=== PATIENT | male | born 1960 | race Native Hawaiian/Other Pacific Islander ===

== ENCOUNTER 2017-05-26 09:59 | Inpatient (IN) | payer BC, OTHER ==
[~2017-05-26] VITALS: Ht 167.6 cm; Wt 72.6 kg
--- NOTE | 2017-06-10 12:00 | NUR ---
pre-assessment:assessed pt in intake, pt at this time is in stable condition, and pt is able to give and sign consent. pt was able to verbalize any allergies and any medical history.
[2017-06-10] MEDS ORDERED: MIRALAX 17 GM POWD.PACK PO PRN (12:15)
[2017-06-10] MEDS ORDERED: LORAZEPAM 1 MG TABLET PO PRN (12:15)
[2017-06-10] MEDS ORDERED: LOPERAMIDE HCL 2 MG CAPSULE PO PRN ×2 (12:15)
[2017-06-10] MEDS ORDERED: LORAZEPAM 2 MG/1 ML VIAL IM PRN (12:15)
[2017-06-10] MEDS ORDERED: ONDANSETRON ODT 4 MG TAB.RAPDIS SL PRN (12:15)
[2017-06-10] MEDS ORDERED: ACETAMINOPHEN 325 MG TABLET PO PRN (12:15)
[2017-06-10] MEDS ORDERED: MAGNESIUM HYDROXIDE 30 ML LIQUID UDC PO PRN (12:15)
[2017-06-10] MEDS ORDERED: THIAMINE HCL 200 MG/2 ML VIAL IM ONE (12:15)
[2017-06-10] MEDS ORDERED: ONDANSETRON 4 MG/2 ML VIAL IM PRN (12:15)
[2017-06-10] MEDS ORDERED: CLONIDINE HCL 0.1 MG TABLET PO PRN (12:15)
[2017-06-10] MEDS ORDERED: IBUPROFEN 400 MG TABLET PO PRN (12:15)
[2017-06-10] MEDS ORDERED: DICYCLOMINE HCL 20 MG TABLET PO PRN (12:15)
[2017-06-10] MEDS ORDERED: OMEP40CA37 PO (12:25)
[2017-06-10] MEDS ORDERED: ASPI81TA31 PO (12:25)
[2017-06-10] MEDS ORDERED: AMLO5TAB2 PO (12:25)
[2017-06-10] MEDS ORDERED: ASCO500C16 PO (12:25)
[2017-06-10] MEDS ORDERED: LOSA50TA21 PO (12:25)
[2017-06-10] MEDS ORDERED: SIMV20TA6 PO (12:25)
[2017-06-10] MEDS ORDERED: ALLO300T2 PO (12:25)
[2017-06-10] MEDS ORDERED: CA C1TAB98 PO (12:25)
[2017-06-10 12:42] VITALS: BP 123/78
[2017-06-10 12:43] VITALS: BP 123/76
[2017-06-10 13:12] LABS: BASOPHILS # (AUTO) 0.1 K/uL (0.0-8.0); BASOPHILS % (AUTO) 1.1 % (0.0-2.0); EOSINOPHILS # (AUTO) 0.3 K/uL (0.0-0.7); EOSINOPHILS % (AUTO) 4.5 % (0.0-7.0); HEMATOCRIT 41.8 % (40-50); HEMOGLOBIN 13.2 G/DL (14.0-18.0); LYMPHOCYTES # (AUTO) 1.5 K/UL (0.8-4.8); LYMPHOCYTES % (AUTO) 21.7 % (20.5-51.5); MEAN CORPUSCULAR HEMOGLOBIN 30.3 UUG (27.0-31.0); MEAN CORPUSCULAR HGB CONC 32 g/dL (32.0-37.0); MEAN CORPUSCULAR VOLUME 95.9 FL (82.0-92.0); MONOCYTES # (AUTO) 0.5 K/UL (0.1-1.30); MONOCYTES % (AUTO) 7.1 % (0.0-11.0); NEUTROPHILS # (AUTO) 4.4 K/UL (1.8-8.9); NEUTROPHILS % (AUTO) 65.6 % (38.5-71.5); PLATELET COUNT (AUTO) 407 K/UL (150-450); RED BLOOD CELL COUNT(AUTO) 4.36 MIL/UL (4.7-6.1); WHITE BLOOD COUNT (AUTO) 6.8 K/UL (4.0-11.2)
[2017-06-10 13:50] LABS: *AMPHETAMINE, URINE POSITIVE (NEGATIVE); *BARBITURATE, URINE NEGATIVE (NEGATIVE); *CANNABINOID, URINE POSITIVE (NEGATIVE); *COCCAINE, URINE NEGATIVE (NEGATIVE); *OPIATE, URINE NEGATIVE (NEGATIVE); *PHENCYCLIDINE SCREEN,URINE NEGATIVE (NEGATIVE)
[2017-06-10 13:55] LABS: ALANINE AMINOTRANSFERASE 27 U/L (16-63); ALKALINE PHOSPHATASE 107 U/L (50-136); AMYLASE 42 U/L (25-115); ASPARTATE AMINOTRANSFERASE 17 U/L (15-37); BILIRUBIN,TOTAL 0.6 mg/dL (0.2-1.0); CARBON DIOXIDE 27 mmol/L (21-32); CHLORIDE 100 mmol/L (98-107); CREATININE 0.8 mg/dL (0.6-1.3); GLUCOSE 111 mg/dL (74-106); LIPASE 148 U/L (73-393); POTASSIUM 3.9 mmol/L (3.5-5.1); TOTAL PROTEIN, SERUM 8.2 g/dL (6.4-8.2); UREA NITROGEN, BLOOD 13 mg/dL (7-18)
[2017-06-10 13:59] LABS: ETHANOL < 3 MG/DL (0-0)
--- NOTE | 2017-06-10 14:00 | NUR ---
ADMISSION NOTE: Patient is 56yo male patient presented for admission for supervised withdrawal from alcohol. Alert and oriented X4, full code, NKA. Vital signs: 12783, HR 76, Temp 96.8, R 12, 02 sat 98% RA, pain 7/10 (headache and backache). Patient denies any history or falls or seizure. Patient denies any SOB and chest pain. Denies tremors, sweating, n/v at this time. Patient complains of headache and tingling sensation all over his body. Denies suicidal and homicidal ideation. CIWA = 7. Patient has steady gait. Substance use history per patient report: 1) Alcohol - pt. reports last use was 06/10/17 around 3am,drank 4 beers, started when he was 11 years old, pt. unable to state how long he was using at this rate). Patient states he usually drinks 2-5 bottles of beers everyday. 2) Meth - pt. reports last use was 06/10/17, smoked few puffs daily [id number] months. Started using in 2014 daily.
[2017-06-10 14:06] LABS: THYROID STIMULATING HORMONE 0.891 mIU/mL (0.358-3.740)
--- NOTE | 2017-06-10 16:00 | NUR ---
DEFER CIWA ASSESSMENT Patient is asleep at this time. Defer CIWA assessment.
--- NOTE | 2017-06-10 18:57 | NUR ---
END OF SHIFT Patient is 56yo male patient presented for admission for supervised withdrawal from alcohol. Patient is full code, NKA. Patient denies any history or falls or seizure. Patient denies any SOB and chest pain. Denies tremors, sweating, n/v at this time. Patient complains of headache and tingling sensation all over his body. Denies suicidal and homicidal ideation. CIWA = 7. Patient has steady gait. By the time patient was approached for Tylenol and Ativan, pt. was noted asleep, pt. reports he has not slept for 3 days, barely slept 2 hours everyday. Patient remains asleep at this time. horse trainerbudget and policy analyst will continue to monitor patient.
--- NOTE | 2017-06-10 19:15 | NUR ---
Start of Shift Note: Patient is a 56 y/o male admitted on 06/10/17 for ETOH and Meth dependence. He reports PMHx of GERD, HTN, Hyperlipidemia, Obstructive Sleep apnea, Gout, Hx of Skin CA. Surgical Hx of Cholecystectomy. No seizure history noted. Patient is on a regular diet with no known food and drug allergies. Full Code status. Skin intact. Patient has no taper yet. Last CIWA is 7. No PRN medications given during day shift. Patient is alert & oriented x4. Patient is ambulatory with a steady gait. No shortness of breath noted. Respiration even & unlabored. Abdomen soft & non-distended. No nausea/vomiting noted. Patient denies sweating at this time. No pain/discomfort noted. Patient appears anxious and agitated. Patient denies hallucinations. No hand tremors noted. Safety precautions are in place. Bed locked in lowest position. Both side rails up. Call light within pt's reach. Will continue to monitor patient.
[2017-06-10 20:00] VITALS: BP 110/67
[2017-06-10] MEDS: SIMVASTATIN 20 MG TABLET PO SCH (21:00)
[2017-06-10] MEDS: LORAZEPAM 1 MG TABLET PO PRN (23:04)
--- NOTE | 2017-06-10 23:04 | NUR ---
PRN Ativan PRN Ativan 1mg administered to patient for a CIWA score of 6. Patient appears anxious and agitated. Patient is barely sweating. No nausea or headache noted. Patient denies hallucinations. Vitals WNL. Will monitor for effectiveness of medication.
[2017-06-11] VITALS: BP_SYST 146; BP_SYST 155; BP_DIAS 92; BP_DIAS 95
--- NOTE | 2017-06-11 00:04 | NUR ---
PRN Reassessment Patient appears calm and verbalized decreased in anxiety. Patient lying in bed with no s/s of distress noted. Will continue to monitor patient.
[2017-06-11] MEDS: diphenhydrAMINE 50 MG CAPSULE PO PRN ×2 (02:30→20:36)
[2017-06-11] MEDS: LORAZEPAM 1 MG TABLET PO PRN ×3 (02:30→20:36)
--- NOTE | 2017-06-11 02:30 | NUR ---
PRN Ativan & Benadryl Patient presented with mild tactile hallucinations and moderate visual hallucinations. Patient reported seeing worms on robes and khan on the bathroom. Patient also reported mild itching all over body. Patient denies nausea at this time. Mild anxiety & mild headache noted. Vitals WNL. CIWA 12 noted at this time. PRN Ativan 1mg and Benadryl for sleep administered as ordered. Will monitor for effectiveness of medication.
[2017-06-11 02:33] VITALS: BP 125/82
--- NOTE | 2017-06-11 03:30 | NUR ---
PRN Reassessment Patient asleep at this time with no s/s of distress noted. Patient appears calm & comfortable in bed. Unable to assess CIWA at this time. Safety measures in place. Will continue to monitor patient.
--- NOTE | 2017-06-11 06:52 | NUR ---
End of Shift Note: Patient is a 56 y/o male admitted yesterday 06/10/17 for ETOH and Meth dependence. Patient has no taper yet. PRN medications available for symptoms of withdrawal. At 2300, CIWA 6 noted and was given Ativan 1mg for symptoms of anxiety and agitation and was effective. At 0230, pt presented with visual and tactile hallucinations with a CIWA of 12 noted. Pt received Ativan 1mg and Benadryl for sleep and was effective. Pt's vitals remained WNL. Pt still asleep at this time with no s/s of distress noted. Patient slept for a total of 5 hours. Patient consumed 1065ml of fluids and Voided 2x. No bowel movement noted. Encouraged pt to increase fluid intake. All needs attended & met. Safety measures in place. Will endorse pt to day shift nurse.
[2017-06-11] MEDS: PANTOPRAZOLE SODIUM 40 MG TABLET.DR PO SCH (07:00)
--- NOTE | 2017-06-11 07:05 | NUR ---
Start of Shift Notes: Received patient in his room. Alert and verbally responsive. Oriented x 4. Dozes on and off while in conversation but no s/s of disorientation noted. No AV halluncations noted. No tactile hallucinations noted. Able to make needs known. Respirations even and unlabored. No SOB noted. Skin warm and dry to touch. Abdomen soft and non-distended with (+) BS in all 4 quadrants. No complains of N/V/D or constipation noted. Denies any complains of abdominal discomfort. Bladder non-distended. No complains of dysuria noted. Ambulatory ad isaiah with steady gait. Patient is a 56 year old male admitted for ETOH and methamphetamine dependence who was placed on PRNs at this time. Prior to admission, patient would use on and off 2-5 bottles of beer and intermittent 750 hard liquor. Has past medical hx of GERD, HTN, hyperlipidemia, skin cancer, degenerative spine disease, cholecystectomy. Educated patient on his current plan of care for the day and his medication regimen. Encouraged oral fluid intake and encouraged group participation to learn new skills to prevent relapse. On fall and seizure precautions. Call light kept in reach. Safety precautions in place. Will continue to monitor closely throughout the day and provide support.
[2017-06-11 08:00] VITALS: BP 109/69
[2017-06-11] MEDS ORDERED: Medication Not On Formulary EA (Omeprazole 1 CAP) PO SCH (09:00)
[2017-06-11] MEDS ORDERED: TUBERCULIN,PURIF.PROT.DERIV. 5 TU/0.1 ML TEST ID ONE (09:00)
[2017-06-11] MEDS: AMLODIPINE 5 MG TABLET PO SCH (09:18)
[2017-06-11] MEDS: THIAMINE HCL 100 MG TABLET PO SCH (09:18)
[2017-06-11] MEDS: ALLOPURINOL 300 MG TABLET PO SCH (09:18)
[2017-06-11] MEDS: ASPIRIN 81 MG TAB.CHEW PO SCH (09:18)
[2017-06-11] MEDS: FOLIC ACID 1 MG TABLET PO SCH (09:18)
[2017-06-11] MEDS: LOSARTAN POTASSIUM 50 MG TABLET PO SCH (09:18)
[2017-06-11] MEDS: MULTIVITAMINS,THERAPEUTIC TABLET PO SCH (09:18)
--- NOTE | 2017-06-11 09:18 | NUR ---
Ativan 1 mg PO PRN given: CIWA 10, patient presented with sweats, gross tremors, anxiety and agitation. No AV hallucinations noted. Denies S/I or H/I noted. Medicated patient with Ativan 1 mg PO per PRN dose. Will monitor for effectiveness.
--- NOTE | 2017-06-11 10:18 | NUR ---
Re-assessment: CIWA 5. Less anxiety, sweats, agitation and tactile disturbance noted. PRN Ativan 1 mg Po was effective.
[2017-06-11] MEDS ORDERED: LORAZEPAM 1 MG TABLET PO PRN (11:00)
[2017-06-11 12:00] VITALS: BP 137/95
[2017-06-11 13:10] LABS: HEPATITIS B SURFACE AG Negative (Negative)
--- NOTE | 2017-06-11 13:30 | NUR ---
Mid Shift Notes: Patient woke up and went to the kitchen area to get coffee. Patient is alert and oriented x 4. Able to make his needs known. No changes in LOC noted. Encouraged to go to group and increase oral intake.
[2017-06-11 17:00] VITALS: BP 135/89
--- NOTE | 2017-06-11 18:54 | NUR ---
End of Shift Notes: Patient continues to be on close monitoring for s/s of withdrawal. VS monitored closely. No significant abnormalities noted. Withdrawal symptoms were closely monitored. Patient presented with sweats, anxiety, agitation, chills, and gross tremors. Initial CIWA 10, Last CIWA 3. Medicated patient with Ativan 1 mg PO for CIWA 10 at 0918 with help after 1 hour. Patient was unable to participate in group and therapy sessions. Patient slept for most of the shift. Non-compliant with safety precautions. Prefers 1 siderail down despite multiple times staff educated him on safety. All needs met and attended. Will continue to monitor.
--- NOTE | 2017-06-11 19:15 | NUR ---
Start of Shift Note: Patient is a 56 y/o male admitted on 06/10/17 for ETOH and Meth dependence. He reports PMHx of GERD, HTN, Hyperlipidemia, Obstructive Sleep apnea, Gout, Hx of Skin CA. Surgical Hx of Cholecystectomy. No seizure history noted. Patient is on a regular diet with no known food and drug allergies. Full Code status. Skin intact. Patient has PRN medications available for s/s of withdrawal. Last CIWA is 3 @1600. Pt was given PRN Ativan 1mg @ 0918. Patient is alert & oriented x4. Patient is ambulatory with a steady gait. No shortness of breath noted. Respiration even & unlabored. Abdomen soft & non-distended. No nausea/vomiting noted. Patient denies sweating at this time. No pain/discomfort noted. Patient appears anxious and agitated. Patient presented with tactile and visual hallucinations. Patient stated that he is seeing worms on his feet and under his toenails. Patient also has been scratching and complaining of itching all over his body. No auditory hallucinations noted. No hand tremors noted. Safety precautions are in place. Bed locked in lowest position. Both side rails up. Call light within pt's reach. Will continue to monitor patient.
[2017-06-11 20:00] VITALS: BP 148/98
[2017-06-11] MEDS: SIMVASTATIN 20 MG TABLET PO SCH (20:36)
--- NOTE | 2017-06-11 20:36 | NUR ---
PRN Ativan 1mg Patient presented with anxiety, agitation, mild visual and mild tactile hallucinations. No hand tremors noted. Patient denies SI/HI. CIWA 10 noted. Vitals WNL. Ativan 1mg PO administered as ordered. Will continue to monitor patient.
--- NOTE | 2017-06-11 21:36 | NUR ---
PRN Reassessment Patient verbalized decreased in anxiety and less agitation. Patient observed to be more calmer. Patient still presents with very light visual and tactile hallucinations. Patient verbalized less itching all over body. CIWA 5 at this time. No hand tremors noted. Safety measures in place. Will continue to monitor patient.
[2017-06-11] MEDS ORDERED: HYDROXYZINE PAMOATE 25 MG CAPSULE PO PRN (23:45)
[2017-06-12] MEDS ORDERED: HYDROXYZINE PAMOATE 25 MG CAPSULE ONE ×2 (00:01→23:25)
[2017-06-12 01:00] VITALS: BP 155/95
--- NOTE | 2017-06-12 01:25 | NUR ---
PRN Ativan/Vistaril Patient appears restless in his room and appears to be so anxious and so agitated. Patient presented with moderately severe tactile and visual hallucinations. Pt stated that there were worms on khan on his feet and under his toenails. Patient has been scratching and complaining of itching all over body. Ciwa 19 at this time. Vitals WNL. PRN Ativan 2mg and Vistaril administered as ordered. Will continue to monitor patient.
--- NOTE | 2017-06-12 02:25 | NUR ---
PRN Reassessment Patient asleep in bed with no s/s of distress noted. Patient appears calm and comfortable. No s/s of distress noted. Safety measures in place. Will continue to monitor patient.
--- NOTE | 2017-06-12 04:00 | NUR ---
Vitals/Ciwa deferred Patient refused vitals at this time. Patient asleep in bed and appears comfortable. Unable to assess CIWA at this time. Patient is not in any s/s of distress. Will continue to montior patient.
[2017-06-12] MEDS: PANTOPRAZOLE SODIUM 40 MG TABLET.DR PO SCH (07:08)
--- NOTE | 2017-06-12 07:26 | NUR ---
End of Shift Note: Patient is a 56 y/o male admitted yesterday 06/10/17 for ETOH and Meth dependence. PRN medications available for symptoms of withdrawal. At 2036, CIWA 10 noted and was given Ativan 1mg for symptoms of anxiety and agitation and was effective. At 0125, pt presented with visual and tactile hallucinations, and was more anxious and agitated with a CIWA of 19 noted. Pt received Ativan 2mg and Vistaril for anxiety and was effective. Pt's vitals remained WNL. Pt still asleep at this time with no s/s of distress noted. Patient slept for a total of 4 hours. Patient consumed 1257ml of fluids and Voided 3x. No bowel movement noted. Encouraged pt to increase fluid intake. All needs attended & met. Safety measures in place. Will endorse pt to day shift nurse.
--- NOTE | 2017-06-12 07:47 | NUR ---
START OF SHIFT Pt 56 y/o male admitted for medical supervision from [facility]. Pt received in room on bed with eyes closed resting, but easily arousable to name. Perrla. Skin warm and dry to touch. Respirations even and unlabored. Pt appears slightly irritable. It was reported that pt slept for 4 hours last night. Bed on lowest position with side rails x2 up for safety. Call light within reach. No distress noted at this time.
[2017-06-12 08:01] VITALS: BP 134/80
[2017-06-12] MEDS: MULTIVITAMINS,THERAPEUTIC TABLET PO SCH (08:41)
[2017-06-12] MEDS: ASPIRIN 81 MG TAB.CHEW PO SCH (08:41)
[2017-06-12] MEDS: LOSARTAN POTASSIUM 50 MG TABLET PO SCH (08:41)
[2017-06-12] MEDS: FOLIC ACID 1 MG TABLET PO SCH (08:41)
[2017-06-12] MEDS: AMLODIPINE 5 MG TABLET PO SCH (08:42)
[2017-06-12] MEDS: ALLOPURINOL 300 MG TABLET PO SCH (08:42)
[2017-06-12] MEDS: THIAMINE HCL 100 MG TABLET PO SCH (08:42)
[2017-06-12 13:20] VITALS: BP 131/84
[2017-06-12] MEDS: LORAZEPAM 1 MG TABLET PO PRN ×2 (14:19→21:06)
--- NOTE | 2017-06-12 14:23 | NUR ---
PRN Pt with ciwa=6. Pt anxious and irritable. Ativan 1mg po prn per MD order given and tolerated. Pt states, " only 1? this won't work! Give me 2." Pt demanding.
--- NOTE | 2017-06-12 15:23 | NUR ---
MERISSAN ALTON Pt with ciwa=3, observed in room wathcing television at this time.
[2017-06-12 16:00] VITALS: BP 125/58
--- NOTE | 2017-06-12 16:15 | NUR ---
Client was prompted by therapist to attend daily group therapy sessions. Client did not respond to therapist.
--- NOTE | 2017-06-12 18:08 | NUR ---
END OF SHIFT Pt 56 y/o male admitted for medical withdrawal supervision from ETOH. Pt alert and oriented. Perrla. Skin warm and dry to touch. Respirations even and unlabored. Pt intrusive and needed some redirection today. Pt with some anxiety noted today. Pt observed mostly in room this morning. Pt medication compliant and tolerated well. No ASE noted. Bed on lowest position with side rails x2 up for safety. Call light within reach. No distress noted at this time.
--- NOTE | 2017-06-12 19:30 | NUR ---
Start of shift: Received patient in bed awake, alert and oriented x4. Complained of not able to have a phone to call family at home. Speech is clear but pressured. Patient became more anxious and requested for his medications in his bag. Reoriented, directed and educated concerning medication usage. CIWA 5. Will medicate accordingly per MD's order. Will continue to monitor behavior.
--- NOTE | 2017-06-12 20:00 | NUR ---
START OF SHIFT Received report from day shift nurse. Pt attended a group meeting and returned to his room after. He is a 56 yo male admitted to [facility] on 06/10 for ETOH dependence. He is A&O and ambulatory. NKA, full code status, and on a regular diet. He has a PMH of GERD, HTN, hyperlipidemia, skin cancer w/surgical removal, degenerative spine, gallbladder removal, and possible sleep apnea undiagnosed. On admission he reported drinking 2-5 bottles of beer per day, methamphetamine "few puffs" per day, and marijuana occasionally. Ativan taper started today. He has been using PRN Ativan since admission. New orders for seroquel noted. Pt presents with moist skin and reports mild anxiety. He refuses side rails up x2. Educated pt regarding safety measures. Bed is down with call light in reach.
[2017-06-12] MEDS: SIMVASTATIN 20 MG TABLET PO SCH (20:54)
[2017-06-12] MEDS ORDERED: LORAZEPAM 1 MG TABLET PO PRN ×2 (22:30)
[2017-06-13] VITALS (7 sets, daily range): BP systolic 103–140; BP diastolic 64–95
[2017-06-13] MEDS: HYDROXYZINE PAMOATE 25 MG CAPSULE PO PRN (00:28)
[2017-06-13] MEDS: diphenhydrAMINE 50 MG CAPSULE PO PRN ×2 (00:28→20:50)
--- NOTE | 2017-06-13 01:05 | NUR ---
AVELINA Fung Pt woke up and reports that acid indigestion has returned. AVELINA Fung administered.
[2017-06-13] MEDS: MAG HYDROX/AL HYDROX/SIMETH 30 ML LIQUID UDC PO PRN ×3 (04:22→20:49)
--- NOTE | 2017-06-13 04:22 | NUR ---
Maalox PRN: Pt c/o heartburn. Maalox PRN given as ordered. Pt stated that Protonix does not work for him and he would like to continue with his home medication Omeprazole. Educated pt about the effects of Protonix. Will endorse to MD about pt wanting to use own medication. Will continue to monitor.
[2017-06-13] MEDS: PANTOPRAZOLE SODIUM 40 MG TABLET.DR PO SCH (06:33)
--- NOTE | 2017-06-13 07:14 | NUR ---
Patient alert and oriented x4. Slept 6 hours and 15 minutes. Still wants medications in his bag. Complained of Protonix not effective. Will prefer omeprazole. Will medicate accordingly per MD's order. Slept 6 hours and 15 minutes.
[2017-06-13] MEDS: ALLOPURINOL 300 MG TABLET PO SCH (08:07)
[2017-06-13] MEDS: ASPIRIN 81 MG TAB.CHEW PO SCH (08:07)
[2017-06-13] MEDS: LOSARTAN POTASSIUM 50 MG TABLET PO SCH (08:07)
[2017-06-13] MEDS: MULTIVITAMINS,THERAPEUTIC TABLET PO SCH (08:07)
[2017-06-13] MEDS: THIAMINE HCL 100 MG TABLET PO SCH (08:07)
[2017-06-13] MEDS: LORAZEPAM 1 MG TABLET PO SCH ×4 (08:07→20:49)
[2017-06-13] MEDS: FOLIC ACID 1 MG TABLET PO SCH (08:07)
[2017-06-13] MEDS: AMLODIPINE 5 MG TABLET PO SCH (08:07)
--- NOTE | 2017-06-13 12:48 | NUR ---
Behavior: Patient noted with increase agitation and anxiety. Noted to refuse Ativan at this time until he speaks with MD. MD Bowman is in and talked to the patient but patient continues to refuse. Patient was referred to case management to help with his care. Patient was able to be redirected and eventually took his 1300 Ativan. Patient also has a tendency to verbalize inappropriate sexual remarks to female nurses, however redirectable. Reinforced appropriate behavior at all times. Will continue to monitor. Addendum: 06/13/17 at 1902 by CHERYL LANTIGUA LVN Charge nurse made aware
--- NOTE | 2017-06-13 12:53 | NUR ---
Mylanta 30 cc PO given: Patient noted with complain of GI upset. Medicated patient with Mylanta 30cc PO as ordered. Will monitor for effectiveness.
--- NOTE | 2017-06-13 13:53 | NUR ---
Re-assessment: Per patient, PRN Mylanta was effective in reducing GI upset.
--- NOTE | 2017-06-13 18:20 | NUR ---
Psych MD Communication: Informed Dr. Bishop of patient's behavior of sudden burst of agitation. Per MD, he will evaluate the patient and will enter in orders.
--- NOTE | 2017-06-13 18:21 | NUR ---
Add'l notes: Also notified MD of patient's inappropriate behavior towards female nurse.
--- NOTE | 2017-06-13 18:52 | NUR ---
End of Shift Notes: Patient continues to be on 4-day Ativan taper as ordered that was started today. No adverse reactions noted. VS monitored closely. No significant abnormalities noted. Initial CIWA 9, Last CIWA_. Per patient, Ativan has been helping him with his withdrawal symptoms. Patient presented with agitation and anxiety, also noted with mild sweats and GI upset. Mediated patient with Mylanta 30 cc PO as ordered with help after 1 hour. Participated in group and activities. Requires a lot of redirection and reassurance. Noted with inappropriate behavior towards nurse at times. MD Bowman and Psych MD aware. Per MD, continue to monitor. Prefers to have 1 siderail up when in bed despite education of the risks. All needs met and attended. Will continue to monitor. Addendum: 06/13/17 at 1904 by CHERYL LANTIGUA LVN Last CIWA 7.
[2017-06-13] MEDS: SIMVASTATIN 20 MG TABLET PO SCH (20:50)
[2017-06-13] MEDS: QUETIAPINE FUMARATE 25 MG TABLET PO SCH (20:50)
--- NOTE | 2017-06-13 20:51 | NUR ---
PRN Mylanta and Benadryl Pt c/o acid indigestion and inability to sleep. PRN Mylanta and Benadryl administered.
[2017-06-13] MEDS ORDERED: QUETIAPINE FUMARATE 25 MG TABLET ONE (20:59)
--- NOTE | 2017-06-13 21:51 | NUR ---
PRN Mylanta and Benadryl reassessment PRN Mylanta and Benadryl effective. Pt is lying in bed resting with eyes closed. Respirations even and unlabored. Will continue to monitor.
[2017-06-14] VITALS: BP 123/78
[2017-06-14] MEDS: MAG HYDROX/AL HYDROX/SIMETH 30 ML LIQUID UDC PO PRN ×2 (01:04→05:06)
--- NOTE | 2017-06-14 01:05 | NUR ---
PRN Mylanta administration Pt woke up an c/o acid indigestion. PRN Mylanta administered.
--- NOTE | 2017-06-14 02:05 | NUR ---
PRN Mylanta reassessment PRN Mylanta effective. Pt is lying in bed resting with eyes closed. Respirations even and unlabored. Safety measures in place.
[2017-06-14 04:00] VITALS: BP 139/100
--- NOTE | 2017-06-14 05:05 | NUR ---
PRN Mylanta administration Pt woke up and c/o acid indigestion. PRN Mylanta administered.
--- NOTE | 2017-06-14 07:08 | NUR ---
Start of Shift Endorsement received from nightshift nurse. Pt is a 56 y/o male admitted for alcohol and meth dependence. PT has been placed on a 4 day Ativan taper. Pt is tolerating the taper and mildly withdrawing AEB CIWA 4 at 0400. PT received PRN Seroquel, Benadryl and Mylanta x3. VS WNL. Full Code. Pt reports sleeping 6 hours. PT is alert and oriented x4. Pt is in STABLE condition at this time. Remains compliant with medication and diet regimen. All needs have been met, All safety measures in place per hospital policy. Bed in lowest position, side rails up x2, call-light within reach. Will continue to monitor
--- NOTE | 2017-06-14 07:25 | NUR ---
END OF SHIFT Report provided to day shift nurse. Pt is lying in bed resting. He is a 56 yo male admitted to [facility] on 06/10 for ETOH dependence. He is A&O and ambulatory. NKA, full code status, and on a regular diet. He has a PMH of GERD, HTN, hyperlipidemia, skin cancer w/surgical removal, degenerative spine, gallbladder removal, and possible sleep apnea undiagnosed. On admission he reported drinking 2-5 bottles of beer per day, methamphetamine "few puffs" per day, and marijuana occasionally. Ativan taper started yesterday. He was cooperative with treatment. PRN Mylanta administered x3 for reports of acid indigestion. Pt is ordered to receive his home omeprazole this morning. PRN Benadryl and PRN Mylanta x3 administered. Last CIWA was 3. He drank 710mL and slept for 8 hours. Safety measures in place. Bed is down with call light in reach.
[2017-06-14 08:00] VITALS: BP 128/75
[2017-06-14] MEDS: AMLODIPINE 5 MG TABLET PO SCH (08:16)
[2017-06-14] MEDS: OMEPRAZOLE 40 MG PO SCH (08:16)
[2017-06-14] MEDS: MULTIVITAMINS,THERAPEUTIC TABLET PO SCH (08:16)
[2017-06-14] MEDS: THIAMINE HCL 100 MG TABLET PO SCH (08:16)
[2017-06-14] MEDS: ASPIRIN 81 MG TAB.CHEW PO SCH (08:16)
[2017-06-14] MEDS: FOLIC ACID 1 MG TABLET PO SCH (08:16)
[2017-06-14] MEDS: LOSARTAN POTASSIUM 50 MG TABLET PO SCH (08:17)
[2017-06-14] MEDS: ALLOPURINOL 300 MG TABLET PO SCH (08:17)
[2017-06-14] MEDS: QUETIAPINE FUMARATE 25 MG TABLET PO SCH ×3 (08:17→16:21)
[2017-06-14] MEDS ORDERED: LORAZEPAM 1 MG TABLET PO SCH ×2 (09:00→21:00)
[2017-06-14 12:00] VITALS: BP 105/58
[2017-06-14] MEDS ORDERED: METHOCARBAMOL 500 MG TABLET PO PRN (12:00)
[2017-06-14] MEDS ORDERED: IBUPROFEN 600 MG TABLET PO PRN (12:00)
[2017-06-14] MEDS: LIDOCAINE 5% PATCH TD SCH (12:23)
--- NOTE | 2017-06-14 13:09 | NUR ---
Transfer of Care Endorsed Pt to [facility].
--- NOTE | 2017-06-14 13:10 | NUR ---
ASSUMED CARE Pt endorsement report received from primary nurse. All pertinent information discussed. Will cont to monitor. All safety measures in place.
[2017-06-14 16:00] VITALS: BP 137/91
--- NOTE | 2017-06-14 19:06 | NUR ---
END OF SHIFT NOTE Gave report to night nurse, 56 yo male admitted to [facility] on 06/10 for ETOH dependence. NKA, full code status, and on a regular diet. He has a PMH of GERD, HTN, hyperlipidemia, skin cancer w/surgical removal, degenerative spine, gallbladder removal, and possible sleep apnea undiagnosed. Assumed care at 1310. During shift pt did not receive any PRN medication. Vital signs WNL. Last CIWA score noted 2. Encourage Po fluids as tolerated. Pt remained compliant with plan of care. All safety measures in place, Call light within reach. Pt endorsed to night nurse in stable condition.
--- NOTE | 2017-06-14 19:15 | NUR ---
START OF SHIFT Received 56 year old male patient admitted on 06/10/17 for ETOH, meth and marijuana dependency. Pt is full code with NKA. He reports a PMHx of GERD, HTN, hyperlipidemia, skin cancer, degeneration of spine, cholecystectomy and surgery on face to remove skin CA. He reports drinking ETOH 2-5 bottles of beer daily. Last dose was 4 beers on 06/10/17. Meth few puffs daily for 6 -12 months. Last dose was a few puffs on 06/10/17. And Marijuana occasionally. Pt placed on 4 day Ativan taper and tolerating well. Per endorsement, pt did not receive or request PRN medications. Pt is alert and oriented x4, breathing is even and unlabored. Safety measures in place. Will continue to monitor.
[2017-06-14 20:00] VITALS: BP 141/94
--- NOTE | 2017-06-14 20:30 | NUR ---
Received endorsement Patient is a 56-year old, male, admitted for ETOH, meth and marijuana dependence. Pt is full code with NKA. He reports a PMHx of GERD, HTN, hyperlipidemia, skin cancer, degeneration of spine, cholecystectomy and surgery on face to remove skin CA. Pt also reports using Meth few puffs daily for 6-12 months. Pt placed on a 4-day Ativan taper on 06/13/2017 and tolerating well. Pt is AAOx4 and with slight anxiety noted. Pt with no SOB noted. Pt is ambulatory with steady gait and with no skin noted. Fall, universal and safety prec in place. Call light within reach. Latest CIWA=5. Will continue to monitor.
[2017-06-14] MEDS: SIMVASTATIN 20 MG TABLET PO SCH (22:07)
[2017-06-14] MEDS: diphenhydrAMINE 50 MG CAPSULE PO PRN (23:12)
--- NOTE | 2017-06-14 23:13 | NUR ---
RN note PRN Benadryl and Robaxin Pt c/o inability to sleep and generalized muscle pain=5/10. Administered Benadryl 50 mg PO and Robaxin 500 mg PO as ordered. Will reassess.
[2017-06-15] VITALS: BP 135/86
--- NOTE | 2017-06-15 00:23 | NUR ---
RN note reassess Pt verbalized pain level=2-3/10. Pt also verbalized feeling sleepy.
[2017-06-15 04:00] VITALS: BP 139/82
--- NOTE | 2017-06-15 07:10 | NUR ---
End of Shift Patient is a 56-year old, male, admitted for ETOH, meth and marijuana dependence. Pt is full code with NKA. He reports a PMHx of GERD, HTN, hyperlipidemia, skin cancer, degeneration of spine, cholecystectomy and surgery on face to remove skin CA. Pt also reports using Meth few puffs daily for 6-12 months. Pt placed on a 4-day Ativan taper on 06/13/2017 and tolerating well. Pt is AAOx4 and with slight anxiety noted. Pt with no SOB noted. Pt is ambulatory with steady gait and with no skin noted. Fall, universal and safety prec in place. Call light within reach. Latest CIWA=3, slept for 5 hours. Endorsed to AM shift nurse for continuity of care.
--- NOTE | 2017-06-15 07:23 | NUR ---
Start of Shift Report received from pediatric clinical dietician nurse on 56 year old male admitted on 06/10/17 for ETOH detoxification. Pt also endorses occasional methamphetamine and marijuana use. Pt is a full code on a regular diet with NKA. Skin intact. Pt reports PMH of GERD, HTN, hyperlipidemia, skin cancer, degeneration of spine, removal of gallbladder, surgery of face to remove skin cancer, gout and possible sleep apnea (undiagnosed ). Pt currently on a 4 day Ativan taper, pt tolerating well. Last CIWA of 3 recorded at 0400. Pt received Benadryl and Robaxin, PRN, during pediatric clinical dietician, per report. Disabilities Caregiver first encounters pt resting in bed with eyes closed, respirations even and unlabored, pt noted to be snoring with no apnea noted. Bed in low position, with wheels locked, side rails up x2 and call light within reach. All safety measures in place per hospital policy. Will continue to monitor, support and encourage according to plan of care.
[2017-06-15 08:03] VITALS: BP 117/77
[2017-06-15] MEDS ORDERED: LORAZEPAM 1 MG TABLET PO SCH ×2 (09:00)
[2017-06-15] MEDS: ASPIRIN 81 MG TAB.CHEW PO SCH (09:10)
[2017-06-15] MEDS: LOSARTAN POTASSIUM 50 MG TABLET PO SCH (09:11)
[2017-06-15] MEDS: ALLOPURINOL 300 MG TABLET PO SCH (09:11)
[2017-06-15] MEDS: AMLODIPINE 5 MG TABLET PO SCH (09:11)
[2017-06-15] MEDS: OMEPRAZOLE 40 MG PO SCH (09:11)
[2017-06-15] MEDS: THIAMINE HCL 100 MG TABLET PO SCH (09:11)
[2017-06-15] MEDS: MULTIVITAMINS,THERAPEUTIC TABLET PO SCH (09:11)
[2017-06-15] MEDS: FOLIC ACID 1 MG TABLET PO SCH (09:11)
[2017-06-15] MEDS: QUETIAPINE FUMARATE 25 MG TABLET PO SCH ×3 (09:11→17:27)
[2017-06-15] MEDS: LIDOCAINE 5% PATCH TD SCH (09:11)
[2017-06-15] MEDS ORDERED: LIDO30AD10 TD (12:41)
[2017-06-15] MEDS ORDERED: IBUP-1955 PO (12:41)
[2017-06-15] MEDS ORDERED: METH500T6 PO (12:41)
[2017-06-15] MEDS ORDERED: QUET25TA PO (12:41)
[2017-06-15] MEDS ORDERED: HYDR-3895 PO (12:41)
[2017-06-15] MEDS ORDERED: DIPH50CA37 PO (12:41)
[2017-06-15 13:10] VITALS: BP 101/60
[2017-06-15 16:25] VITALS: BP 125/85
--- NOTE | 2017-06-15 19:16 | NUR ---
End of Shift Report provided to systems mechanic nurse, with no further comments, questions or concerns. Pt is a 56 year old male admitted on 06/10/17 for ETOH detoxification. Pt also endorses occasional methamphetamine and marijuana use. Pt is a full code on a regular diet with NKA. Skin intact. Pt reports PMH of GERD, HTN, hyperlipidemia, skin cancer, degeneration of spine, removal of gallbladder, surgery of face to remove skin cancer, gout and possible sleep apnea (undiagnosed ). Pt slept for a large portion of shift and lead technical writer did not notice any apnic episodes. Pt has completed a 4 day Ativan taper, pt tolerated well, pt is scheduled to discharge tomorrow. Last CIWA of 1 recorded at 1600. Pt did not request any PRN medication. Pt is A/O x4, calm and cooperative with some periods of irritability, able to make needs known. Flat affect with depressed mood. Bed in low position, with wheels locked, side rails up x2 and call light within reach. All safety measures in place per hospital policy.
[2017-06-15 20:00] VITALS: BP 140/92
--- NOTE | 2017-06-15 20:00 | NUR ---
START OF SHIFT NOTE PATIENT ALERT AND ORIENTED X 4. RESPIRATION EVEN AND UNLABORED. PATIENT STATES HE'S ANXIOUS AND WOULD WANT TO SMOKE. NO N/V. DENIES ANY PAIN. RECEIVED REPORT FROM DAY SHIFT NURSE. PATIENT COMPLETED 4 DAY ATIVAN TAPER FOR ETOH DEPENDENCE. PATIENT IS MEDICALLY CLEARED TO BE DISCHARGED TOMORROW. PATIENTS LAST CIWA 1. PATIENT DID NOT REQUIRE ANY PRN MEDICATION. SKIN INTACT. URINE NEED TO BE COLLECTED . ON FALL PRECAUTION. SAFETY MEASURES IN PLACE. CALL LIGHT IN REACH. WILL CONTINUE TO MONITOR
[2017-06-15] MEDS: SIMVASTATIN 20 MG TABLET PO SCH (21:38)
[2017-06-15] MEDS: diphenhydrAMINE 50 MG CAPSULE PO PRN (22:30)
[2017-06-15] MEDS: HYDROXYZINE PAMOATE 25 MG CAPSULE PO PRN (22:30)
--- NOTE | 2017-06-15 22:30 | NUR ---
PRN BENADRYL AND VISTARIL ADMINISTRATION PATIENT C/O ANXIETY AND REQUESTS FOR SLEEP AID. PRN BENADRYL AND VISTARIL GIVEN. WILL MONITOR FOR EFFECTIVENESS
[2017-06-15 23:16] LABS: *AMPHETAMINE, URINE NEGATIVE (NEGATIVE); *BARBITURATE, URINE NEGATIVE (NEGATIVE); *CANNABINOID, URINE NEGATIVE (NEGATIVE); *COCCAINE, URINE NEGATIVE (NEGATIVE); *OPIATE, URINE NEGATIVE (NEGATIVE); *PHENCYCLIDINE SCREEN,URINE NEGATIVE (NEGATIVE)
--- NOTE | 2017-06-15 23:30 | NUR ---
PRN VISTARIL RE-ASSESSMENT PATIENT SAYS HIS ANXIETY SUBSIDED. VISTARIL HELPFUL . WILL CONTINUE TO MONITOR.
[2017-06-16] MEDS ORDERED: TRAZODONE 50 MG TABLET PO SCH (02:15)
--- NOTE | 2017-06-16 02:52 | NUR ---
TRAZADONE ADMINISTRATION PATIENT UNABLE TO STAY ASLEEP. OBTAIN ORDER FOR TRAZADONE. WILL MONITOR FOR EFFECTIVENESS
[2017-06-16] MEDS ORDERED: TRAZODONE 50 MG TABLET ONE (03:02)
--- NOTE | 2017-06-16 03:52 | NUR ---
PRN TRAZADONE RE-ASSESSMENT PATIENT IN BED WITH HIS EYES CLOSED. RESPIRATION EVEN AND UNLABORED. WILL CONTINUE TO MONITOR
[2017-06-16 04:00] VITALS: BP 129/89
--- NOTE | 2017-06-16 07:13 | NUR ---
END OF SHIFT NOTE PATIENT REMAIN STABLE. . PATIENT COMPLETED 4 DAY ATIVAN TAPER FOR ETOH DEPENDENCE. PATIENT IS MEDICA LY CLEARED TO BE DISCHARGED TODAY MONITORED PATIENT THROUGHOUT SHIFT. PATIENT COMPLIANT WITH MEDICATION AND TREATMENT PLAN. PATIENT HAD DIFFICULTY STAYING ASLEEP DURING SHIFT. PATIENT WAS GIVEN PRN VISTARIL AND BENADRYL . TRAZADONE WAS GIVEN DUE TO BENADRYL INEFFECTIVE. PATIENT SLEPT ONLY 2 HOURS. SKIN INTACT. ON FALL PRECAUTION. SAFETY MEASURES IN PLACE. CALL LIGHT IN REACH. WILL CONTINUE TO MONITOR. SLEPT 2 HOURS . FLUID INTAKE 1,850 ML. VOIDED X 2 . NO BM . LAST CIWA 1.
--- NOTE | 2017-06-16 07:58 | NUR ---
Start of Shift Report received from night club manager nurse on 56 year old male admitted on 06/10/17 for ETOH detoxification. Pt also endorses occasional methamphetamine and marijuana use. Pt is a full code on a regular diet with NKA. Skin intact. Pt reports PMH of GERD, HTN, hyperlipidemia, skin cancer, degeneration of spine, removal of gallbladder, surgery of face to remove skin cancer, gout and possible sleep apnea (undiagnosed ). Pt has completed a 4 day Ativan taper, pt tolerated well. Last CIWA of 1 recorded at 0400. Pt received Benadryl , Vistaril and a obe time orde of Trazodone, during night club manager, per report. Flight Control Specialist first encounters pt resting in bed with eyes closed, respirations even and unlabored, pt noted to be snoring with no apnea noted. Pt became agitated and irritable when pt awoke from his sleep to find sign writer hand doing a safety check. Currently refusing VS. Pt is scheduled for discharge today, scheduled to be transported to [facility] in [place]. Bed in low position, with wheels locked, side rails up x2 and call light within reach. All safety measures in place per hospital policy. Will continue to monitor, support and encourage according to plan of care.
[2017-06-16 08:36] VITALS: BP 138/96
[2017-06-16 09:01] VITALS: BP 138/78
[2017-06-16] MEDS: QUETIAPINE FUMARATE 25 MG TABLET PO SCH (09:01)
[2017-06-16] MEDS: AMLODIPINE 5 MG TABLET PO SCH (09:01)
[2017-06-16] MEDS: OMEPRAZOLE 40 MG PO SCH (09:01)
[2017-06-16] MEDS: LOSARTAN POTASSIUM 50 MG TABLET PO SCH (09:01)
[2017-06-16] MEDS: ALLOPURINOL 300 MG TABLET PO SCH (09:01)
[2017-06-16] MEDS: ASPIRIN 81 MG TAB.CHEW PO SCH (09:01)
[2017-06-16] MEDS: FOLIC ACID 1 MG TABLET PO SCH (09:01)
[2017-06-16] MEDS: THIAMINE HCL 100 MG TABLET PO SCH (09:01)
[2017-06-16] MEDS: LIDOCAINE 5% PATCH TD SCH (09:02)
[2017-06-16] MEDS: MULTIVITAMINS,THERAPEUTIC TABLET PO SCH (09:02)
--- NOTE | 2017-06-16 09:54 | NUR ---
Discharge Note Pt in stable condition with VS WNL. Pt is A/O x4 and makes his needs known. Pt denies HI/SI or A/VH. All discharge paperwork completed, dated and signed. Pt provided discharge education, including, medication education to include rational and timing of doses. Pt provided with prescriptions and all education material. All belongings and personal affects returned and signed for. Pt did not have any home medications. Pt's CIWA of 1, related to anxiety. Pt discharged per ambulation to awaiting transport car. notified of pt's discharge.
== END 2017-06-16 09:54 | disposition other institution (70) | DRG 895 ==
LOC: SRC 06-10 11:21
PROVIDERS: ADMIT Internal Medicine; ATTEND Internal Medicine
PROC: HZ2ZZZZ Detoxification Services for Substance Abuse Treatment (ICD-10-PCS; principal; 2017-06-10)
PROC: HZ41ZZZ Group Counseling for Substance Abuse Treatment, Behavioral (ICD-10-PCS; 2017-06-11)
PROC: HZ31ZZZ Individual Counseling for Substance Abuse Treatment, Behavioral (ICD-10-PCS; 2017-06-12)
DX: F10.230 Alcohol dependence with withdrawal, uncomplicated (principal); F15.10 Other stimulant abuse, uncomplicated; Y90.9 Presence of alcohol in blood, level not specified; K21.9 Gastro-esophageal reflux disease without esophagitis; E78.5 Hyperlipidemia, unspecified; F17.210 Nicotine dependence, cigarettes, uncomplicated; M10.9 Gout, unspecified; Z82.49 Family history of ischemic heart disease and other diseases of the circulatory system; I10 Essential (primary) hypertension; G47.33 Obstructive sleep apnea (adult) (pediatric); Z90.49 Acquired absence of other specified parts of digestive tract; G89.29 Other chronic pain; M54.5 Low back pain; F12.90 Cannabis use, unspecified, uncomplicated; D53.9 Nutritional anemia, unspecified; R73.9 Hyperglycemia, unspecified
CPT/HCPCS: 36415; 70030-TC; 80307; 80324; 80349; 83690; 83735; 84443; 85025; 86580; 86592; 86705; 86803; 87340; 87806; A4663; G0480; Q0163